=== PATIENT | female | born 1950 | race Caucasian/White ===

== ENCOUNTER 2016-10-14 14:27 | Emergency (ER) | payer OTHER ==
[2016-10-14 14:48] VITALS: BP 146/61; PULSE 84; TEMP 98.6; BMI 27.4
--- NOTE | 2016-10-14 19:27 | PDOC ---
History of Present Illness - General History Source: Patient Exam Limitations: No Limitations - History of Present Illness Initial Comments: 10/14/16 19:40 The patient is a 65 year old female with significant past medical history of hypertension, hyperlipidemia, and diabetes who presents to the ED for 2 days of pain, redness and swelling to the right elbow s/p mechanical fall several days ago. Patient reports on 10/01, she fell out of bed and landed on her right elbow , sustaining a little abrasion to the area. No head trauma or LOC. States she cleaned the area at home. However, in the past 2 days, she noted her right elbow has become red, swollen and painful. Denies fever, chills, or diaphoresis. Patient reports she went to her PMD prior to arrival and was informed to come into the ER for evaluation. The patient denies cough, SOB, chest pain, abdominal pain, nausea, vomiting, and diarrhea. Allergies: NKDA Social History: No alcohol, tobacco, or drug use reported. Past Surgical History: None reported PCP: Not affiliated with staff <Snehal Lui - Last Filed: 10/14/16 19:40> - General History Source: Patient <Jamaal Valerio - Last Filed: 10/14/16 20:27> - General Chief Complaint: Redness To Affected Area Stated Complaint: SENT BY PCP Time Seen by Provider: 10/14/16 19:25 Past History <Snehal Lui - Last Filed: 10/14/16 19:40> - Past Medical History Diabetes: Yes HTN: Yes Hypercholesterolemia: Yes - Psycho/Social/Smoking Cessation Hx Suicidal Ideation: No Smoking History: Never smoked <Jamaal Valerio - Last Filed: 10/14/16 20:27> - Past Medical History Allergies/Adverse Reactions: Allergies Allergy/AdvReac Type Severity Reaction Status Date / Time No Known Allergies Allergy Verified 10/14/16 14:45 Home Medications: Ambulatory Orders Amlodipine Besylate [Norvasc -] 10 mg PO DAILY 10/14/16 Enalapril Maleate [Vasotec -] 10 mg PO DAILY 10/14/16 Hydrochlorothiazide 25 mg PO DAILY 10/14/16 Levofloxacin [Levaquin -] 500 mg PO DAILY #7 tablet 10/14/16 Losartan/Hydrochlorothiazide [Losartan-Hctz 100-12.5 mg Tab] 1 each PO DAILY Metformin HCl 1,000 mg PO BID 10/14/16 Simvastatin 40 mg PO DAILY 10/14/16 Review of Systems - Review of Systems Able to Perform ROS?: Yes Comments:: 10/14/16 19:40 CONSTITUTIONAL: Absent: fever, no chills, no fatigue EYES: Absent: visual changes ENT: Absent: ear pain, no sore throat CARDIOVASCULAR: Absent: chest pain, no palpitations RESPIRATORY: Absent: cough, no SOB GI: Absent: abdominal pain, no nausea, no vomiting, no constipation, no diarrhea GENITOURINARY: Absent: dysuria, no frequency, no hematuria MUSCULOSKELETAL: +right elbow pain, swelling, redness Absent: back pain, no myalgia SKIN: Absent: rash NEURO: Absent: headache <Snehal Lui - Last Filed: 10/14/16 19:40> *Physical Exam - Vital Signs Last Vital Signs Temp Pulse Resp BP Pulse Ox 98.6 F 84 18 146/61 98 10/14/16 14:46 10/14/16 14:46 10/14/16 14:46 10/14/16 14:46 10/14/16 14:46 - Physical Exam Comments: 10/14/16 19:40 GENERAL: Well-appearing, well-nourished. No apparent distress. HEENT: Normocephalic, atraumatic. PERRL, EOM intact. CARDIOVASCULAR: Normal S1, S2. Regular rate and rhythm. PULMONARY: Clear to auscultation bilaterally. ABDOMEN: Soft, non-distended, non-tender. EXTREMITIES: Normal ROM in all four extremities. Well healing abrasion on the right elbow with surrounding erythema 2 cm in circumference. Mild tenderness to the right elbow. FROM of right elbow. No gross deformities. SKIN: Warm, dry. No rash NEUROLOGICAL: No focal neurological deficits. <Snehal Lui - Last Filed: 10/14/16 19:40> - Vital Signs Last Vital Signs Temp Pulse Resp BP Pulse Ox 98.6 F 84 18 146/61 98 10/14/16 14:46 10/14/16 14:46 10/14/16 14:46 10/14/16 14:46 10/14/16 14:46 <Jamaal Valerio - Last Filed: 10/14/16 20:27> ED Treatment Course - LABORATORY CBC & Chemistry Diagram: 10/14/16 19:48 10/14/16 19:48 <Jamaal Valerio - Last Filed: 10/14/16 20:27> Medical Decision Making - Medical Decision Making 10/14/16 20:27 Dr. Valerio: The scribe's documentation has been prepared under my direction and personally reviewed by me in its entirery. I confirm that the note above accurately reflects all work, treatment, procedures, and medical decision making performed by me. <Jamaal Valerio - Last Filed: 10/14/16 20:27> *DC/Admit/Observation/Transfer - Attestations Scribe Attestion: 10/14/16 19:41 Documentation prepared by Snehal Lui, acting as medical typist for Jamaal Valerio DO. <Snehal Lui - Last Filed: 10/14/16 19:40> - Discharge Dispostion Admit: No <Jamaal Valerio - Last Filed: 10/14/16 20:27> Diagnosis at time of Disposition: Cellulitis Qualifiers: Site of cellulitis of extremity: upper extremity Laterality: right Qualified Code(s): L03.113 - Cellulitis of right upper limb - Discharge Dispostion Disposition: HOME Condition at time of disposition: Stable - Prescriptions Prescriptions: Levofloxacin [Levaquin -] 500 mg PO DAILY #7 tablet - Referrals Referrals: STAFF,NOT ON [Primary Care Provider] - Delores Gomez MD [Staff Physician] - - Patient Instructions Printed Discharge Instructions: DI for Cellulitis -- Adult Additional Instructions: Take antibiotic as directed. use tylenol or Motrin for pain and fever. Follow up with your doctor in two days.
[2016-10-14] MEDS ORDERED: LEVOFLOXACIN 500 MG IVPB 100 ML IVPB ONE ×2 (19:28→19:50)
[2016-10-14 20:01] LABS: BASOPHIL 0.4 % (0-2.0); EOSINOPHIL 1.6 % (0-4.5); MCHC 33.8 g/dl (32.0-36.0); MEAN CELL VOLUME 70.9 fl (80-96); MEAN PLT VOLUME 8.2 fl (7.5-11.1); NEUTROPHILS 78.7 % (42.8-82.8); PLATELET COUNT 179 K/MM3 (134-434); RDW 15.2 % (11.6-15.6)
[2016-10-14 20:20] LABS: ANION GAP 9 (8-16); CALCIUM 9.4 mg/dL (8.5-10.1); CO2 27 mmol/L (21-32); CREATININE 0.7 mg/dL (0.55-1.02); GLUCOSE,RANDOM 162 mg/dL (74-106)
== END 2016-10-14 20:32 | disposition home or self-care (01) ==
LOC: JER 14:27
DX: L03.113 Cellulitis of right upper limb (principal); I10 Essential (primary) hypertension; E11.9 Type 2 diabetes mellitus without complications; Z79.84 Long term (current) use of oral hypoglycemic drugs; E78.00 Pure hypercholesterolemia, unspecified; W06.XXXA Fall from bed, initial encounter; Y93.89 Activity, other specified; Y92.032 Bedroom in apartment as the place of occurrence of the external cause
CPT/HCPCS: 36415; 80048; 85025; 96365; 99282-25